=== PATIENT | male | born 1950 | race Caucasian/White ===

== ENCOUNTER 2017-09-05 10:25 | Emergency (ER) | payer MEDICARE, OTHER ==
[~2017-09-05] VITALS: Ht 182.9 cm; Wt 90.0 kg
[2017-09-05 10:30] VITALS: BP 118/75; PULSE 91; RESP 16; TEMP 98.6; O2SAT 97
[2017-09-05] MEDS ORDERED: LISI-519 PO (10:42)
[2017-09-05] MEDS ORDERED: AMLO5TAB2 PO (10:42)
[2017-09-05] MEDS ORDERED: METO25TA3 PO (10:42)
[2017-09-05] MEDS ORDERED: TERA5CAP3 PO (10:42)
[2017-09-05] MEDS ORDERED: ALLO100T PO (10:42)
[2017-09-05] MEDS ORDERED: CLIN300C5 PO (10:56)
[2017-09-05] MEDS ORDERED: ERYTOIN10 RIGHT EYE (10:56)
--- NOTE | 2017-09-05 10:57 | PD ---
HPI Chief Complaint: Eye Problems/Injury Time Seen by Provider: 10:37 Travel History International Travel<30 days: No Contact w/Intl Traveler<30days: No Traveled to known affect area: No History of Present Illness HPI 67-year-old male presents to the emergency department for evaluation of swelling to the right lower eyelid that started 2-3 days ago. He reports tearing from the right eye, but denies any changes with the eye itself. No visual changes. No fevers or chills. Current pain is 5/10, without radiation. Patient denies any history of the same. No fevers or chills. No other symptoms or complaints. Mild severity. PFSH Past Medical History Diabetes: No Diminished Hearing: No Hypertension: Yes Tetanus Vaccination: < 5 Years Past Surgical History Cardiac Surgery: Yes (ASCENDING AORTA) Social History Alcohol Use: Yes (OCC) Tobacco Use: No Substance Use: No Allergies-Medications (Allergen,Severity, Reaction): Coded Allergies: No Known Allergies (Unverified , 09/05/17) Reported Meds & Prescriptions Reported Meds & Active Scripts Active Clindamycin (Clindamycin HCl) 300 Mg Cap 300 Mg PO Q6H 10 Days Erythromycin Opth Oint 5 Mg/Gm Oint 1 Applic RIGHT EYE QID Reported Metoprolol Tartrate 25 Mg Tab 25 Mg PO DAILY Allopurinol 100 Mg Tab 100 Mg PO DAILY Terazosin (Terazosin HCl) 5 Mg Cap 5 Mg PO HS Amlodipine (Amlodipine Besylate) 5 Mg Tab 5 Mg PO DAILY Lisinopril 5 Mg Tab 5 Mg PO DAILY Review of Systems Except as stated in HPI: all other systems reviewed are Neg Physical Exam Narrative GENERAL: Well-nourished, well-developed male patient, ambulatory. Afebrile. SKIN: Focused skin assessment warm/dry. HEAD: Normocephalic. Atraumatic. ENT: Mucosa pink and moist. No erythema or exudates. No uvular edema. No uvular , palatal, or tonsillar deviation. Airway patent. Nasal turbinates appear normal without nasal blood, purulent drainage or septal hematoma. EYES: No scleral icterus. No injection or drainage. PERRLA. Stye noted to right lower eyelid. No induration or surrounding erythema. NECK: Supple, trachea midline. No JVD or lymphadenopathy. CARDIOVASCULAR: Regular rate and rhythm without murmurs, gallops, or rubs. RESPIRATORY: Breath sounds equal bilaterally. No accessory muscle use. Lung sounds are clear to auscultation. MUSCULOSKELETAL: No cyanosis, or edema. BACK: Nt obvious deformity. Data Data Last Documented VS Vital Signs Date Time Temp Pulse Resp B/P (MAP) Pulse Ox O2 Delivery O2 Flow Rate FiO2 09/05/17 10:30 98.6 91 16 118/75 (89) 97 Orders Orders Ed Discharge Order (09/05/17 10:57) MDM Medical Decision Making Medical Screen Exam Complete: Yes Emergency Medical Condition: Yes Medical Record Reviewed: Yes Differential Diagnosis Stye versus hordeolum versus conjunctivitis versus preseptal cellulitis Narrative Course 67-year-old male presents to the emergency department for evaluation of swelling to the right lower eyelid. Physical exam is consistent with a stye. Patient will be discharged with a prescription for erythromycin ophthalmologic ointment, clindamycin. He is instructed to do warm, moist compresses and follow with an sponge fisherman. He is to return here for any acute worsening of symptoms. The patient was discharged in stable condition with instructions, including return instructions and follow up instructions. Diagnosis Primary Impression: Stye Qualified Codes: H00.012 - Hordeolum externum right lower eyelid Referrals: Winnie Adamson MD call for appointment Patient Instructions: General Instructions, Mukesh (ED) Additional Instructions: Take antibiotic as directed until gone Use erythromycin eye ointment as directed. Warm, moist compresses with gentle massage for 15 minutes multiple times daily. Follow-up with an sponge fisherman, Dr. Adamson, if symptoms do not improve. Return to the emergency department for any acute worsening of symptoms. Med/Other Pt SpecificInfo: Prescription(s) given Scripts Clindamycin (Clindamycin) 300 Mg Cap 300 MG PO Q6H for Infection for 10 Days, #40 CAP 0 Refills Prov: Angelique Rodgers 09/05/17 Erythromycin Opth Oint (Erythromycin Opth Oint) 5 Mg/Gm Oint 1 APPLIC RIGHT EYE QID for Infection, #1 TUBE 0 Refills Prov: Angelique Rodgers 09/05/17 Disposition: 01 DISCHARGE HOME Condition: Stable Angelique Rodgers Sep 05, 2017 10:57
== END 2017-09-05 11:13 | disposition home or self-care (01) ==
LOC: PHEFT 10:25
DX: H00.012 Hordeolum externum right lower eyelid (principal); I10 Essential (primary) hypertension
CPT/HCPCS: 99283